=== PATIENT | male | born 1975 | race Caucasian/White ===

== ENCOUNTER 2017-02-10 09:48 | Emergency (ER) | payer OTHER ==
[~2017-02-10] VITALS: Ht 175.3 cm; Wt 90.0 kg
[~2017-02-10 09:48] MED LIST: ALPR.25 PO; ATOR10TA PO; LISI10TA PO
[2017-02-10 10:00] VITALS: BP 155/94; PULSE 100; RESP 18; TEMP 98.3; O2SAT 97
[2017-02-10] MEDS ORDERED: ATOR10TA15 PO (10:01)
[2017-02-10] MEDS ORDERED: LISI10TA PO (10:01)
[2017-02-10] MEDS ORDERED: PROPARACAINE HCL 0.5% OPHT SOLN 15 ML BTL EACH EYE ONE (10:15)
[2017-02-10] MEDS ORDERED: POLY10O RIGHT EYE (10:36)
[2017-02-10] MEDS ORDERED: HYDR-3516 PO (10:36)
--- NOTE | 2017-02-10 10:42 | PD ---
HPI Chief Complaint: Eye Problems/Injury Time Seen by Provider: 10:11 Travel History International Travel<30 days: No Contact w/Intl Traveler<30days: No Traveled to known affect area: No History of Present Illness HPI Patient presents with complaints of right eye discomfort after awakening this morning. Denies any exposure to wood metal or sand. He does have 2 dogs at home that are quite rubs. Denies any loss of vision. Sensation of foreign body. Patient irrigated his eye at home without complication. PFSH Past Medical History Arthritis: No Asthma: No Autoimmune Disease: No Blood Disorders: No Anxiety: No Depression: No Heart Rhythm Problems: No Cancer: No Cardiovascular Problems: Yes High Cholesterol: Yes Chemotherapy: No Chest Pain: No Congestive Heart Failure: No COPD: No Cerebrovascular Accident: No Diabetes: Yes ("PRE DIABETIC, NO MEDS") Patient Takes Glucophage: No Diminished Hearing: No Endocrine: No GERD: No Glaucoma: No Genitourinary: No Headaches: No Hepatitis: No Hiatal Hernia: No Hypertension: Yes (HTN - RECENT DIAGNOSIS) Immune Disorder: No Kidney Stones: No Musculoskeletal: No Neurologic: No Psychiatric: No Reproductive: No Respiratory: No Migraines: No Myocardial Infarction: No Radiation Therapy: No Renal Failure: Yes (ACUTE FROM SNAKE BITE) Seizures: No Sickle Cell Disease: No Sleep Apnea: No Thyroid Disease: No Ulcer: No ?: Not Past Surgical History Abdominal Surgery: No AICD: No Appendectomy: No Arteriovenous Shunt: No Cardiac Surgery: No Cholecystectomy: No Ear Surgery: No Endocrine Surgery: No Eye Surgery: No Genitourinary Surgery: No Gynecologic Surgery: No Insulin Pump: No Joint Replacement: No Oral Surgery: No Pacemaker: No Thoracic Surgery: No Other Surgery: Yes (RIGHT HAND) Social History Alcohol Use: Yes Tobacco Use: Yes (1/2 PACK DAILY) Substance Use: Yes (OCCASIONAL THC USAGE) Allergies-Medications (Allergen,Severity, Reaction): Coded Allergies: No Known Allergies (Verified , 02/10/17) Reported Meds & Prescriptions Reported Meds & Active Scripts Active Reported Atorvastatin (Atorvastatin Calcium) 10 Mg Tab 10 Mg PO DAILY Lisinopril-Hctz 10-12.5 Mg Tab 1 Tab PO DAILY Review of Systems General / Constitutional: No: Fever Eyes: Positive: Redness, Foreign Body Sensation, Pain, Tearing, No: Visual changes HENT: No: Headaches Cardiovascular: No: Chest Pain or Discomfort Respiratory: No: Shortness of Breath Gastrointestinal: No: Abdominal Pain Genitourinary: No: Dysuria Musculoskeletal: No: Pain Skin: No Rash Neurologic: No: Weakness Psychiatric: No: Depression Endocrine: No: Polydipsia Hematologic/Lymphatic: No: Easy Bruising Physical Exam Narrative GENERAL: Well-nourished, well-developed patient. SKIN: Focused skin assessment warm/dry. HEAD: Normocephalic. EYES: Right conjunctiva is erythematous with swelling of the upper and lower eyelids. Fluoroscopy reveals an anterior corneal abrasion measuring approximately 3 mm x 3 mm. No foreign body located. Patient tolerated irrigation well NECK: Supple, trachea midline. No JVD or lymphadenopathy. CARDIOVASCULAR: Regular rate and rhythm without murmurs, gallops, or rubs. RESPIRATORY: Breath sounds equal bilaterally. No accessory muscle use. GASTROINTESTINAL: Abdomen soft, non-tender, nondistended. MUSCULOSKELETAL: No cyanosis, or edema. BACK: Nontender without obvious deformity. No CVA tenderness. Data Data Last Documented VS Vital Signs Date Time Temp Pulse Resp B/P Pulse Ox O2 Delivery O2 Flow Rate FiO2 02/10/17 10:00 98.3 100 18 155/94 97 Orders Proparacaine 0.5% Opth Soln (Alcaine 0.5 (02/10/17 10:15) MDM Medical Decision Making Medical Screen Exam Complete: Yes Emergency Medical Condition: Yes Differential Diagnosis Corneal abrasion, foreign body, blepharitis Narrative Course Assessment and plan discussed with patient and at bedside Diagnosis Primary Impression: Corneal abrasion Qualified Code: S05.01XA - Abrasion of right cornea, initial encounter Additional Instructions: Rest and Motrin. Follow-up with PCP. Follow-up with ophthalmology if no improvement by Sunday. Return to emergency with any onset of new symptoms. Med/Other Pt SpecificInfo: Prescription(s) given Scripts Polymyxin B-Trimethoprim Opth Drops (Polytrim Opth Drops)10,000-0.1 Unit/Ml-% Soln1 Drop RIGHT EYE Q6HR PRN (5 times a day) #1 BOTTLE Ref 0 Prov:Perry Butterfield MD 02/10/17 Hydrocodone-Acetaminophen 5-325 mg Tab1 Tab PO Q4H PRN (PAIN) #20 TAB Ref 0 Prov:Perry Butterfield MD 02/10/17 Disposition: 01 DISCHARGE HOME Condition: Good Perry Butterfield MD Feb 10, 2017 10:42
== END 2017-02-10 10:51 | disposition home or self-care (01) ==
LOC: PHEFT 09:48
DX: S05.01XA Injury of conjunctiva and corneal abrasion without foreign body, right eye, initial encounter (principal); X58.XXXA Exposure to other specified factors, initial encounter
CPT/HCPCS: 99284

== ENCOUNTER 2018-04-11 05:58 | Observation (INO) ==
[2018-04-11] MEDS ORDERED: Amoxicillin/Clavulanate 875/125 MG Tablet PO ONE (06:21)
[2018-04-11] MEDS ORDERED: Diphtheria/Tetanus/Pertussis Vaccine Inj 0.5 ML Syringe IM ONE (06:21)
--- NOTE | 2018-04-11 06:30 | ED ---
HPI General Chief Complaint: Animal Bite Stated Complaint: Dog bite to lft hand last night Time Seen by Provider: 04/11/18 06:18 Source: patient Mode of arrival: ambulatory Limitations: no limitations History of Present Illness HPI narrative: Patient presents secondary to dog bite. 2 dogs of his own who were fighting by his bed. He was trying to separate them and was bit in his left wrist and the dorsum of his hand. He has 2 puncture wound at the dorsum at the wrist level. Patient has significant swelling and discomfort in that area. This occurred 4 hours prior to presentation. Generally good health with no significant medical problems Related Data Home Medications Medication Instructions Recorded Confirmed atorvastatin 20 mg PO DAILY 04/11/18 04/11/18 hydrochlorothiazide 25 mg PO DAILY 04/11/18 04/11/18 losartan 50 mg PO DAILY 04/11/18 04/11/18 Allergies Allergy/AdvReac Type Severity Reaction Status Date / Time No Known Allergies Allergy Verified 04/11/18 06:14 Review of Systems ROS: all other systems reviewed are negative [facility], [facility] Medical History Medical History Hypercholesteremia (Acute) Hypertension (Acute) Surgical History Surgical History H/O hand surgery (Acute) Social History Social History Substance History: No History of Abuse Second Hand Smoke Exposure: No Smoking Status: Current some day smoker Tobacco Type: Cigarettes How Often Do You Have a Drink Containing Alcohol: 2 to 4 times a month Recent Travel in [facility] within the Last 8 Weeks: No Recent Out of Country Travel within the Last 8 Weeks: No Immunization History Tetanus Immunization: Unsure Exam Narrative Exam Narrative: GENERAL: Alert and oriented SKIN: Focused skin assessment warm/dry. CARDIOVASCULAR: Regular rate and rhythm. No murmur appreciated. RESPIRATORY: No accessory muscle use. Clear to auscultation. Breath sounds equal bilaterally. Left wrist: Patient has puncture wounds 5-6 mm to dorsum of wrist space and also dorsum of carpal bones on the hand. Patient has significant swelling to dorsum of the hand increasing the volume in that area approximately 30-40% secondary to bleeding and inflammation from the dog bite. There is no neurovascular compromise. The puncture wounds were enlarged to 1.3 cm on each side of the wrist and carpal bones to irrigate and culture the puncture wounds. Procedures Abscess I/D Site: upper extremity and hand Side (if applicable): left Anesthetic used: with epi Technique: incised with #11 blade Amount of fluid expressed (mL): 0 Irrigation: Yes Course Initial Documented Vital Signs Temperature 98.7 F 04/11/18 06:04 Pulse Rate 96 H 04/11/18 06:04 Respiratory Rate 18 04/11/18 06:04 Blood Pressure 152/97 H 04/11/18 06:04 Pulse Oximetry 98 04/11/18 06:04 Last Documented Vital Signs Temperature 98.7 F 04/11/18 06:04 Pulse Rate 96 H 04/11/18 06:04 Respiratory Rate 18 04/11/18 06:04 Blood Pressure 152/97 H 04/11/18 06:04 Pulse Oximetry 98 04/11/18 06:04 Medical Decision Making MDM Narrative Medical decision making narrative: Patient had dog bite 4 hours prior to arrival. By the time patient arrived patient had 10 out of 10 pain to dorsum of the wrist with puncture wounds to the joint space of the wrist and also to the dorsum of the hand over the carpal bones. These puncture wounds were anesthetized and expanded from 6mm to 1.3 cm for copious irrigation and culture. Patient was admitted to [place] [facility] with IV antibiotics. Medical Screen Exam Complete: Yes Emergency Medical Condition: Yes Imaging Data Radiologist's impression: Wrist X-Ray 04/11/18 06:21 CONCLUSION: Posterior wrist soft tissue swelling. No radiopaque foreign body is identified. Discharge Plan Discharge Disposition Patient Disposition: 30 Still Patient Physicians Team ED Provider: Bony Velasquez Primary Care Provider: Wilmar Kitchen Rxs /Orders / Referrals /Forms Prescriptions: No Action losartan 50 mg Tablet 50 mg PO DAILY RF: 0 atorvastatin 20 mg Tablet 20 mg PO DAILY RF: 0 hydrochlorothiazide 25 mg Tablet 25 mg PO DAILY RF: 0 Discharge Interventions Interventions: Vital Signs Last Done: 04/11/18 06:04 Status ED Status: With Doctor
--- NOTE | 2018-04-11 06:44 | XR ---
EXAM DATE: 04/11/2018 6:21 AM EDT AGE/SEX: 42 years / Male INDICATIONS: Dog bite to left wrist. CLINICAL DATA: This is the patient's initial encounter. Patient reports that signs and symptoms have been present for 1 day and indicates a pain score of 10/10. MEDICAL/SURGICAL HISTORY: None. None. COMPARISON: No prior exams available for comparison. FINDINGS: 3 views of the left wrist demonstrate no fracture or dislocation. Mineralization is within normal portillo its and there is no significant arthropathy. No radiopaque foreign body is identified. There is soft tissue swelling of the posterior aspect of the wrist. No radiopaque foreign body is identified. CONCLUSION: Posterior wrist soft tissue swelling. No radiopaque foreign body is identified. Electronically signed by: Dion Norton MD 04/11/2018 6:42 AM EDT
[2018-04-11] MEDS ORDERED: Clindamycin 900 mg/NS Premix 900 MG/50 ML PIGGYBACK IV.SIG ONE (07:45)
[2018-04-11] MEDS ORDERED: Lidocaine 2%/Epinephrine 1:100,000 30 ML MDV INFILTRATN ONE (08:01)
[2018-04-11] MEDS ORDERED: Bisacodyl 10 MG Supp RECTAL PRN (09:40)
[2018-04-11] MEDS ORDERED: Acetaminophen 325 MG Tablet PO PRN (09:40)
[2018-04-11] MEDS ORDERED: Temazepam 15 MG Capsule PO PRN (09:40)
--- NOTE | 2018-04-11 10:36 | P.HP ---
History of Present Illness Service: [facility] hospitalist Primary Care Physician: Wilmar Kitchen Chief Complaint: Dog bite History of Present Illness: HPI narrative: Patient presents secondary to dog bite. 2 dogs of his own who were fighting by his bed. He was trying to separate them and was bit in his left wrist and the dorsum of his hand. He has 2 puncture wound at the dorsum at the wrist level. Patient has significant swelling and discomfort in that area. This occurred 4 hours prior to presentation. Generally good health with no significant medical problems,mild hypertension and cholesterol. Patient started on IV antibiotics rocephin and clindamycin ,consult hand surgeon and wound irrigated in ER. - Diagnosis (1) Dog bite Review of Systems All other systems reviewed negative except as stated in HPI PMFSH - History History Provided By: Patient - Medical History Medical History: Medical History (Last Reviewed 04/11/18 @ 10:32 by Trenton Elder MD) Hypercholesteremia Hypertension - Surgical History Surgical History: Surgical History (Last Reviewed 04/11/18 @ 10:32 by Trenton Elder MD) H/O hand surgery - Tobacco History Second Hand Smoke Exposure: Yes Tobacco Use In Past 30 Days: Yes Smoking Status: Current every day smoker Tobacco Type: Cigars - Alcohol History How Often Do You Have a Drink Containing Alcohol: 4 or more times a week - Substance Use History Substance History: No History of Abuse - Travel History Recent Travel in the [place] Within the Last 8 Weeks: No Recent Travel Out of the Country Within the Last 8 Weeks: No - Immunization History Tetanus Immunization: Unsure Medications and Allergies Active Medications: Active Medications Acetaminophen (Tylenol) 650 mg PO Q4H PRN PRN Reason: Temp > 100.4 Al Hydroxide/Mg Hydroxide (Milk Of Magnharry Liq) 30 ml PO Q12H PRN PRN Reason: Mild Constipation Atorvastatin Calcium (Lipitor) 20 mg PO DAILY KANNAN Bisacodyl (Dulcolax Supp) 10 mg RECTAL DAILY PRN PRN Reason: SEVERE CONSITIPATION Hydrochlorothiazide (Hydrodiuril) 25 mg PO DAILY KANNAN Ceftriaxone Sodium 1,000 mg/ (Sodium Chloride) 100 mls @ 200 mls/hr IV.SIG Q24H KANNAN Clindamycin/Sodium Chloride (Cleocin 900 Mg/Ns Premix) 900 mg in 50 mls @ 100 mls/hr IV.SIG Q8H KANNAN Stop: 04/12/18 08:29 Lactulose (Lactulose Liq) 30 ml PO DAILY PRN PRN Reason: SEVERE CONSITIPATION Losartan Potassium (Cozaar) 50 mg PO DAILY KANNAN Ondansetron HCl (Zofran Inj) 4 mg IV.PUSH Q6H PRN PRN Reason: NAUSEA OR VOMITING Senna/Docusate Sodium (Lisa-Colace) 1 tab PO BID KANNAN Sennosides (Senokot) 17.2 mg PO Q12H PRN PRN Reason: Moderate Constipation Temazepam (Restoril) 15 mg PO HS PRN PRN Reason: INSOMNIA Allergies Allergy/AdvReac Type Severity Reaction Status Date / Time No Known Allergies Allergy Verified 04/11/18 06:14 Home Medications Medication Instructions Recorded Confirmed Type atorvastatin 20 mg PO DAILY 04/11/18 04/11/18 History hydrochlorothiazide 25 mg PO DAILY 04/11/18 04/11/18 History losartan 50 mg PO DAILY 04/11/18 04/11/18 History Exam Vital signs: Vital Signs 04/11/18 06:04 Temperature 98.7 F Pulse Rate 96 H Respiratory Rate 18 Blood Pressure 152/97 H Pulse Oximetry 98 Intake & Output 04/10/18 04/11/18 04/11/18 18:59 06:59 18:59 Intake Total 150 / 150 Balance 150 / 150 Weight 91.7 kg 91.8 kg Intake: IV 150 / 150 Cleocin 900 mg/NS Premix 900 mg 50 / 50 In 50 ml @ 100 mls/hr IV.SIG ONCE ONE Rx#:[id number] Rocephin Inj 1,000 MG In NS Inj 100 / 100 100 ML @ 200 mls/hr IV.SIG ONCE ONE Rx#:[id number] Other: Weight On Admission 91.8 kg Narrative: GENERAL: SKIN: Warm and dry. HEAD: Normocephalic. EYES: No scleral icterus. No injection or drainage. NECK: Supple, trachea midline. No JVD or lymphadenopathy. CARDIOVASCULAR: Regular rate and rhythm without murmurs, gallops, or rubs. RESPIRATORY: Breath sounds equal bilaterally. No accessory muscle use. GASTROINTESTINAL: Abdomen soft, non-tender, nondistended. MUSCULOSKELETAL: No cyanosis, or edema. puncture wound 5-6 mm dorsum of wrist and 2 punctures dorsum carpal bone swelling and tender BACK: Nontender without obvious deformity. No CVA tenderness. Results - Imaging Impressions Wrist X-Ray 04/11/18 06:21 CONCLUSION: Posterior wrist soft tissue swelling. No radiopaque foreign body is identified. Caprini VTE Risk Assessment Caprini VTE Risk Assessment: No/Low Risk (score <= 1) Caprini Risk Assessment Model: Point Value = 1 Point Value = 2 Point Value = 3 Point Value = 5 Age 41-60 Minor surgery BMI > 25 kg/m2 Swollen legs Varicose veins or History of unexplained or recurrent spontaneous Oral contraceptives or hormone replacement Sepsis (< 1 month) Serious lung disease, including pneumonia (< 1 month) Abnormal pulmonary function Acute myocardial infarction Congestive heart failure (< 1 month) History of inflammatory bowel disease Medical patient at bed rest Age 61-74 Arthroscopic surgery Major open surgery (> 45 min) Laparoscopic surgery (> 45 min) Malignancy Confined to bed (> 72 hours) Immobilizing plaster cast Central venous access Age >= 75 History of VTE Family history of VTE Factor V Leiden Prothrombin [id number] Lupus anticoagulant Anticardiolipin antibodies Elevated serum homocysteine Heparin-induced thrombocytopenia Other congenital or acquired thrombophilia Stroke (< 1 month) Elective arthroplasty Hip, pelvis, or leg fracture Acute spinal cord injury (< 1 month) Prophylaxis Regimen: Total Risk Factor Score Risk Level Prophylaxis Regimen 0-1 Low Early ambulation 2 Moderate Order ONE of the following: *Sequential Compression Device (SCD) *Heparin 5000 units SQ BID 3-4 Higher Order ONE of the following medications: *Heparin 5000 units SQ TID *Enoxaparin/Lovenox 40 mg SQ daily (WT < 150 kg, CrCl > 30 mL/min) *Enoxaparin/Lovenox 30 mg SQ daily (WT < 150 kg, CrCl > 10-29 mL/min) *Enoxaparin/Lovenox 30 mg SQ BID (WT < 150 kg, CrCl > 30 mL/min) AND/OR *Sequential Compression Device (SCD) 5 or more Highest Order ONE of the following medications: *Heparin 5000 units SQ TID (Preferred with Epidurals) *Enoxaparin/Lovenox 40 mg SQ daily (WT < 150 kg, CrCl > 30 mL/min) *Enoxaparin/Lovenox 30 mg SQ daily (WT < 150 kg, CrCl > 10-29 mL/min) *Enoxaparin/Lovenox 30 mg SQ BID (WT < 150 kg, CrCl > 30 mL/min) AND *Sequential Compression Device (SCD) Assessment and Plan - Assessment (1) Dog bite Code(s): W54.0XXA - Bitten by dog, initial encounter Status: Acute Plan: consult hand surgeon and IV rocephin and clindamycin Full liquids for now - Plan as above Code Status: full Discussed Condition With: patient
[2018-04-11 10:57] LABS: Baso # (Auto) 0.1 th/mm3 (0.0-0.2); Baso % (Auto) 0.7 % (0.0-2.0); Eos # (Auto) 0.1 th/mm3 (0.0-0.4); Hematocrit 45.8 % (39.0-51.0); Hemoglobin 15.6 gm/dL (13.0-17.0); Lymph # (Auto) 2.1 th/mm3 (1.0-4.8); Lymph % (Auto) 15.7 % (9.0-44.0); Mean Corpuscular Hemoglobin 33.5 pg (27.0-34.0); Mean Corpuscular Volume 98.3 fL (80.0-100.0); Mean Platelet Volume 8.6 fL (7.0-11.0); Mono # (Auto) 0.9 th/mm3 (0.0-0.9); Mono % (Auto) 6.5 % (0.0-8.0); Neut # (Auto) 10.3 th/mm3 (1.8-7.7); Neut % (Auto) 76.1 % (16.0-70.0); Platelet Count 201 th/mm3 (150-450); Red Blood Count 4.66 mil/mm3 (4.50-5.90); Red Cell Distribution Width 12.4 % (11.6-17.2); White Blood Count 13.5 th/mm3 (4.0-11.0)
[2018-04-11 11:04] LABS: Chloride 102 meq/L (98-107); Potassium 3.3 meq/L (3.5-5.1); Sodium 137 meq/L (136-145)
[2018-04-11 11:07] LABS: Calcium 8.8 mg/dL (8.5-10.1)
[2018-04-11 11:08] LABS: Albumin 3.7 g/dL (3.4-5.0); Anion Gap 11 meq/L (5-15); Blood Urea Nitrogen 13 mg/dL (7-18); Carbon Dioxide 24.1 meq/L (21.0-32.0); Glucose,Random 160 mg/dL (74-106)
[2018-04-11 11:11] LABS: Alanine Aminotransferase 86 U/L (12-78); Aspartate Aminotransferase 38 U/L (15-37); Glomerular Filtration Rate 82 mL/min (>89)
[2018-04-11 11:14] LABS: Alkaline Phosphatase 76 U/L (45-117)
[2018-04-11] MEDS: Clindamycin 900 mg/NS Premix 900 MG/50 ML PIGGYBACK IV.SIG SCH (15:27)
--- NOTE | 2018-04-11 19:39 | MB ---
cc: Vlad Wilson MD DATE: 04/11/2018 REASON FOR CONSULTATION: Dog bite to the left wrist and hand. HISTORY OF PRESENT ILLNESS: The patient is a 42-year-old right-hand dominant male, who presented to the ED with a complaint of dog bite to the left hand and wrist last night. The patient states this happened around 12:30 a.m. when 2 of his dogs were fighting. He tried to separate the 2 fighting dogs, resulting in the bite to the left wrist and hand. The patient noticed worsening symptoms and presented to the ED early this morning. The patient was found to have swelling around the wrist and the hand. He had drainage and was wash by the ED this morning, and hand surgery was consulted. Patient states following the drainage and washing, his symptoms have come down considerably. He also states he is able to move his fingers better. He also denies any tingling or numbness. PAST MEDICAL AND SURGICAL HISTORY: Reviewed. Significant for hypertension. PHYSICAL EXAMINATION: GENERAL: The patient is alert, oriented x3. EXTREMITIES: Examination of his left hand and wrist reveals a transverse laceration/incision over the dorsal aspect of the hand/wrist measuring about 1 cm with mild surrounding swelling. No purulent drainage noted from the region of the bite wound/incision noted along the volar aspect of the hand over the base of the thenar eminence measuring about 0.5 cm to 1 cm. Tenderness noted over the region. The patient is able to make a fist and he has full extension of the fingers. Terminal degrees of extension of the index finger is associated with pain. He has intact distal sensation. He has intact distal circulation. IMAGING: X-rays for the left hand and wrist was reviewed, and shows evidence of soft tissue swelling. No evidence of foreign body or fracture. ASSESSMENT: A 42-year-old male with dog bites to the left hand, status post wound wash by the ER. PLAN: The patient states that he has improved considerably with the drainage and wash, and he is able to move his fingers better. We will continue with limb elevation, continue IV antibiotics for 24 hours, and reassess the patient receiver stocker, and, if he feels symptomatically better, we can plan on discharge on p.o. Augmentin. If there is any worsening symptoms, we will proceed with formal incision and drainage in a surgical setting and surgery will follow. MD Wiliam Bhatti , 07:17 PM , 07:26 PM MTDKatina
[2018-04-11 20:04] VITALS: RESP 18
[2018-04-11] MEDS: Senna/Docusate Sodium 8.6/50 MG Tablet PO SCH (22:35)
[2018-04-12] MEDS: Clindamycin 900 mg/NS Premix 900 MG/50 ML PIGGYBACK IV.SIG SCH ×2 (00:04→09:38)
[2018-04-12] MEDS ORDERED: Ketorolac Inj 30 MG/ML (IVP) Vial IV.PUSH PRN (03:26)
[2018-04-12 08:55] VITALS: BP 132/78; PULSE 64; TEMP 96.7; O2SAT 97
[2018-04-12] MEDS ORDERED: hydroCHLOROthiazide 25 MG Tablet PO SCH (09:00)
[2018-04-12] MEDS: Senna/Docusate Sodium 8.6/50 MG Tablet PO SCH (09:38)
--- NOTE | 2018-04-12 10:31 | P.DS ---
Date of admission: 04/11/18 09:40 Primary care physician: Wilmar Kitchen Attending physician on discharge: Trenton Elder Anticipated date of discharge: 04/12/18 Brief History from admission: HPI narrative: Patient presents secondary to dog bite. 2 dogs of his own who were fighting by his bed. He was trying to separate them and was bit in his left wrist and the dorsum of his hand. He has 2 puncture wound at the dorsum at the wrist level. Patient has significant swelling and discomfort in that area. This occurred 4 hours prior to presentation. Generally good health with no significant medical problems,mild hypertension and cholesterol. Patient started on IV antibiotics rocephin and clindamycin ,consult hand surgeon and wound irrigated in ER. Patient update on day of discharge: doing well seen by hand surgeon today hand cleaned and looks much better to discharge on ant inflam,and po augmentin and follow up sunday with hand surgeon. DS: Diagnosis - Discharge Diagnosis (1) Dog bite Status: Acute DS: Summary Hospital Course: Patient admitted with dog bite to left hand ,wrist started on rocephin seen by hand surgeon ,area cleaned twice and hand surgeon stated the area looks better and will discharge on PO Augmentin and to follow up on Sunday and return or call him if any worsening. - Time Spent with Patient Total time spent providing and/or coordinating discharge services: Less than 30 minutes - Quality: VTE Deep Vein Thrombosis/Pulmonary Embolism Present on Admission: No Exam Vital signs: Vital Signs 04/11/18 12:00 04/11/18 16:00 04/11/18 20:00 Temperature 98.2 F 97.8 F 98 F Pulse Rate 75 73 68 Respiratory Rate 16 16 18 Blood Pressure 135/82 143/88 H 134/87 Pulse Oximetry 98 97 98 04/12/18 00:00 04/12/18 08:00 Temperature 97.8 F 96.7 F L Pulse Rate 72 64 Respiratory Rate 18 18 Blood Pressure 135/80 132/78 Pulse Oximetry 98 97 Intake & Output 04/11/18 04/12/18 04/12/18 18:59 06:59 18:59 Intake Total 1160 / 1160 50 / 50 Balance 1160 / 1160 50 / 50 Weight 91.8 kg 90.8 kg Intake: IV 200 / 200 50 / 50 Cleocin 900 mg/NS Premix 900 mg 100 / 100 50 / 50 In 50 ml @ 100 mls/hr IV.SIG Q8H KANNAN Rx#:[id number] Rocephin Inj 1,000 MG In NS Inj 100 / 100 100 ML @ 200 mls/hr IV.SIG ONCE ONE Rx#:[id number] Oral 960 / 960 Other: # Voids 6 3 # Bowel Movements 0 Weight On Admission 91.8 kg Narrative: GENERAL: SKIN: Warm and dry. HEAD: Normocephalic. EYES: No scleral icterus. No injection or drainage. NECK: Supple, trachea midline. No JVD or lymphadenopathy. CARDIOVASCULAR: Regular rate and rhythm without murmurs, gallops, or rubs. RESPIRATORY: Breath sounds equal bilaterally. No accessory muscle use. GASTROINTESTINAL: Abdomen soft, non-tender, nondistended. MUSCULOSKELETAL: No cyanosis, or edema. Hand less pain bandaged BACK: Nontender without obvious deformity. No CVA tenderness. Results Procedures completed during hospitalization: hand cleaning as per hand surgeon Labs on day of discharge: Labs from last 24 hours 04/11/18 04/11/18 10:30 10:30 CBC w Diff Auto diff final WBC 13.5 H RBC 4.66 Hgb 15.6 Hct 45.8 MCV 98.3 MCH 33.5 MCHC 34.0 RDW 12.4 Plt Count 201 MPV 8.6 Neut % (Auto) 76.1 H Lymph % (Auto) 15.7 [place] % (Auto) 6.5 Eos % (Auto) 1.0 Baso % (Auto) 0.7 Neut # (Auto) 10.3 H Lymph # (Auto) 2.1 [place] # (Auto) 0.9 Eos # (Auto) 0.1 Baso # (Auto) 0.1 WBC Differential . Differential Comment . Sodium 137 Potassium 3.3 L Chloride 102 Carbon Dioxide 24.1 Anion Gap 11 BUN 13 Creatinine 1.00 Estimated GFR 82 L Random Glucose 160 H Calcium 8.8 Total Bilirubin 0.4 AST 38 H ALT 86 H Alkaline Phosphatase 76 Total Protein 7.0 Albumin 3.7 - Impressions ITS Impressions Wrist X-Ray 04/11/18 06:21 CONCLUSION: Posterior wrist soft tissue swelling. No radiopaque foreign body is identified. Discharge Plan - Discharge Disposition Patient Disposition: Discharge Home - Discharge Condition Condition: Good - Discharge Order Discharge Orders: Discharge Order (Routine); Ordered 04/12/18 Ordered By: Trenton Elder - Discharge Details Anticipated Discharge Date: 04/12/18 Discharge Comment: follow up hand surgeon - Physicians Team Primary Care Provider: Wilmar Kitchen Attending Provider: Trenton Elder Other Providers: Vlad Wilson MD - Rxs /Orders / Referrals /Forms Prescriptions: New acetaminophen 325 mg Tablet 650 mg PO Q4H PRN (Reason: Temp > 100.4) RF: 0 amoxicillin-pot clavulanate [Augmentin] 875-125 mg Tablet 1 tab PO Q12H 7 Days Qty: 14 RF: 0 Continue atorvastatin 20 mg Tablet 20 mg PO DAILY hydrochlorothiazide 25 mg Tablet 25 mg PO DAILY losartan 50 mg Tablet 50 mg PO DAILY Referrals: Wilmar Kitchen D.O. [Primary Care Provider] - See Instructions
== END 2018-04-12 11:20 | disposition home or self-care (01) ==
LOC: PH3 05:58 → PHED 05:58
PROVIDERS: ADMIT Internal Medicine; ATTEND Internal Medicine
DX: S61.552A Open bite of left wrist, initial encounter; W54.0XXA Bitten by dog, initial encounter; I10 Essential (primary) hypertension; E78.00 Pure hypercholesterolemia, unspecified; F17.210 Nicotine dependence, cigarettes, uncomplicated; B95.7 Other staphylococcus as the cause of diseases classified elsewhere; S61.452A Open bite of left hand, initial encounter